=== PATIENT | male | born 1945 | race Caucasian/White ===

== ENCOUNTER 2017-05-06 12:27 | Day surgery (SDC) | payer OTHER, MEDICARE ==
[2017-05-03 14:52] VITALS: BMI 34.7
[2017-05-06] MEDS ORDERED: PROPOFOL 20 ML ONE ×3 (12:45)
[2017-05-06 15:06] VITALS: TEMP 98
[2017-05-06 15:46] VITALS: PULSE 50
[2017-05-06 15:49] VITALS: BP 145/71
--- NOTE | 2017-05-08 14:46 | PATH ---
Surgical Pathology Report Patient Name: NELSON GREENE [facility]. Rec. #: [id number] /Age/Gender: 1945 (Age: 72) / M Account: [id number] Location: ASU-ENDOSCOPY Taken: 05/06/2017 Received: 05/07/2017 Reported: 05/08/2017 Physicians: Shekhar Hoang M.D. Specimen(s) Received A: POLYP FROM TRANSVERSE COLON B: POLYP FROM TRASNVERSE COLON Clinical History Family history of colon cancer Colon polyps, diverticulosis, hemorrhoids Final Diagnosis A. COLON, TRANSVERSE, COLD SNARE POLYPECTOMY: TUBULAR ADENOMA. B. COLON, TRANSVERSE, HOT SNARE POLYPECTOMY: MULTIPLE PORTIONS OF HYPERPLASTIC POLYP, AND SUBMUCOSAL ADIPOSE TISSUE SUGGESTIVE OF LIPOMA. Comment: Recommend correlation with clinical findings and follow up as clinically indicated. Electronically Signed Bay Lacy M.D. Gross Description A. Received in formalin, labeled "polyp transverse colon cold snare" is a jesus, irregular portion of soft tissue measuring 0.4 cm. in greatest dimension. The specimen is submitted in toto in one cassette. B. Received in formalin, labeled "polyp transverse colon hot snare" are 4 jesus, irregular portions of soft tissue ranging from 0.2-0.7 cm. in greatest dimension. The specimens are submitted in toto in one cassette. 05/07/201705/07/2017
== END 2017-05-06 15:49 | disposition home or self-care (01) ==
LOC: JOR 12:27 → JASU-ENDO 12:27
PROVIDERS: ATTEND Internal Medicine Gastroenterology
PROC: 0DBP8ZX Excision of Rectum, Via Natural or Artificial Opening Endoscopic, Diagnostic (ICD-10-PCS; 2017-05-06)
PROC: 0DBL8ZX Excision of Transverse Colon, Via Natural or Artificial Opening Endoscopic, Diagnostic (ICD-10-PCS; 2017-05-06)
PROC: 0DBN8ZX Excision of Sigmoid Colon, Via Natural or Artificial Opening Endoscopic, Diagnostic (ICD-10-PCS; 2017-05-06)
PROC: 0DBK8ZX Excision of Ascending Colon, Via Natural or Artificial Opening Endoscopic, Diagnostic (ICD-10-PCS; 2017-05-06)
PROC: 0DBK8ZX Excision of Ascending Colon, Via Natural or Artificial Opening Endoscopic, Diagnostic (ICD-10-PCS; principal; 2017-05-06 13:30)
DX: Z12.11 Encounter for screening for malignant neoplasm of colon (principal); Z86.010 Personal history of colon polyps; K62.1 Rectal polyp; K64.8 Other hemorrhoids; D12.5 Benign neoplasm of sigmoid colon; D12.2 Benign neoplasm of ascending colon; D12.3 Benign neoplasm of transverse colon
CPT/HCPCS: 88305-TC

== ENCOUNTER → 2019-05-13 | Day surgery (SDC) | payer OTHER, BC ==
--- NOTE | 2019-05-14 12:12 | PATH ---
Cytology Non-Gynecological Report Patient Name: NELSON GREENE Med. Rec. #: [id number] /Age/Gender: 1945 (Age: 74) / M Account: [id number] Location: RADIOLOGY INTER Taken: 05/13/2019 Received: 05/13/2019 Reported: 05/14/2019 Physicians: Reji Puga M.D. Specimen(s) Received RIGHT THYROID FNA Clinical History Right lobe, 2.16 x 1.81 x 2.03 cm Final Diagnosis THYROID, RIGHT, FINE NEEDLE ASPIRATION: SATISFACTORY FOR EVALUATION. BETHESDA CLASS II: BENIGN. CYTOLOGIC FINDINGS ARE CONSISTENT WITH A BENIGN FOLLICULAR NODULE WITH POST-HEMORRHAGIC CHANGE. FEW CLSUTERS OF SMALL FOLLICULAR CELLS IN A BACKGROUND OF ABUNDANT COLLOID AND HEMOSIDERIN-LADEN MACROPHAGES. Electronically Signed Rajni Velázquez M.D. Gross Description Received are eight direct smears, four of which are air-dried and Diff-Quik stained, and four of which are alcohol fixed and Pap stained. Also received is 30 ml of bloody formalin from which one cellblock is prepared.
== END | disposition home or self-care (01) ==
LOC: JRADIR 09:14
PROVIDERS: ATTEND Internal Medicine Endocrinology, Diabetes & Metabolism
PROC: 0G9H3ZX Drainage of Right Thyroid Gland Lobe, Percutaneous Approach, Diagnostic (ICD-10-PCS; principal; 2019-05-13)
DX: E04.1 Nontoxic single thyroid nodule (principal)
CPT/HCPCS: 76942; 88173; 88305-TC

== ENCOUNTER → 2022-01-29 | Day surgery (SDC) | payer OTHER, BC | END | disposition home or self-care (01) | LOC: JRADIR 09:14 | PROVIDERS: ATTEND Internal Medicine Endocrinology, Diabetes & Metabolism | PROC: 0G9H3ZX Drainage of Right Thyroid Gland Lobe, Percutaneous Approach, Diagnostic (ICD-10-PCS; principal; 2022-01-29) | DX: E04.1 Nontoxic single thyroid nodule (principal) | CPT/HCPCS: 10005; 76942; 88173; 88305-TC ==